=== PATIENT | male | born 1985 | race Caucasian/White ===

== ENCOUNTER 2017-07-23 20:29 | Emergency (ER) | payer SELFPAY ==
[2017-07-24 01:34] VITALS: BP 155/78
== END 2017-07-24 01:34 | disposition home or self-care (01) ==
LOC: ED 20:29
DX: S61.217A Laceration without foreign body of left little finger without damage to nail, initial encounter (principal); W45.8XXA Other foreign body or object entering through skin, initial encounter; Y93.H2 Activity, gardening and landscaping; Y99.8 Other external cause status; Y92.89 Other specified places as the place of occurrence of the external cause
CPT/HCPCS: A4570; J2001